=== PATIENT | male | born 1980 | race Caucasian/White ===

== ENCOUNTER → 2016-12-05 | Outpatient (CLI) | payer OTHER ==
[~2016-12-05] MED LIST: GADOBUTROL 10 ML VIAL IVP ONE
--- NOTE | 2016-12-05 16:44 | MR ---
MRI of the Brain (Without and With Contrast) December 05, 2016 at 1341 Hours Clinical Indication: Headaches, history of treated cerebral aneurysm. Comparison: None available. Technique: T1-weighted images were acquired axially and sagittally from the foramen magnum to the ve rtex. Axial fast inversion recovery, fast T2-weighted, and diffusion-weighted axial images were obta ined without contrast. Postcontrast axial T1-weighted images with the uneventful intravenous administ ration of 9 mL Gadavist contrast. Findings: The ventricles, cisterns, and sulci are normal without atrophy, hydrocephalus, midline charo ft, herniation, or epidural/subdural hematomas. No intracranial hemorrhage or masses. Diffusion-weigh jesus images demonstrate no acute infarct. Cerebellar tonsils are in normal position. Pituitary gland i s normal in size. Normal signal flow-void in the superior sagittal sinus, basilar artery, and bilater al internal carotid arteries indicating patency. Postcontrast images demonstrate no enhancing lesions or abnormal leptomeningeal enhancement. Paranasal sinuses and mastoid air cells are clear. 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 There is mild susceptibility artifact, measuring 9 x 4 mm near the right o rbital apex just lateral to the right optic nerve. Impressions: 1. No sinusitis. 2. 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 3. Otherwise, normal MRI brain without and with contrast. 4. Recommend obtaining previous studies for comparison.
--- NOTE | 2016-12-06 13:37 | MR ---
MR Arteriogram of the [place] at 1419 hours Clinical Indications: I671, cerebral aneurysm, prior coiling, COMPARISON: None available. Technique: A [id number] gradient echo technique was used for thin axial images at the skull base for evaluation of major vessels of the [place]. Three-dimensional technique was used with a 30-degree gradient echo flip angle and a traveling saturation band. Images were manipulated by the radiologist at the computer workstation. Findings: Major vessels of the [place] are adequately displayed, demonstrating no evidence of aneurysm, vascular malformation, flow-limiting stenosis, or occlusion. Previously coiled aneurysm is not definitely identified. However, there are no prior studies for comparison. Impression: 1. No definite evidence of cerebral aneurysm. 2. Recommend obtaining previous studies for comparison.
== END ==
LOC: FIMAGING 13:15
PROVIDERS: ATTEND Neurological Surgery
DX: Z03.89 Encounter for observation for other suspected diseases and conditions ruled out (principal)
CPT/HCPCS: A9585